=== PATIENT | male | born 1955 | race Two or more races ===

== ENCOUNTER 2021-01-31 11:41 | Day surgery (SDC) | payer BC ==
[~2021-01-31] VITALS: Ht 170.2 cm; Wt 80.0 kg
[~2021-01-31 11:41] MED LIST: HYDROmorphone 2 MG/ML VIAL IVP PRN; IV RINGERS,LACTATED 1000ML 1,000 ML IV SCH; MORPHINE SULFATE 2 MG/ML INJ. IVP PRN; PROCHLORPERAZINE 10 MG/2 ML VIAL. IVP PRN; fentaNYL PF VIAL 100 MCG/2 ML VIAL IVP PRN
[2021-01-31 12:27] VITALS: BP 150/86
[2021-01-31] MEDS ORDERED: GLIM4TAB8 PO (12:27)
[2021-01-31] MEDS ORDERED: PIOG15TA42 PO (12:27)
[2021-01-31] MEDS ORDERED: METF500T16 PO (12:27)
[2021-01-31] MEDS ORDERED: INSULIN LISPRO 100 UNIT/ML 3ML VIAL for OP,RR ONLY. SQ PRN (12:45)
[2021-01-31] MEDS ORDERED: INSULIN LISPRO 100 UNIT/ML 3ML VIAL for OP,RR ONLY. SQ ONE (12:45)
[2021-01-31] MEDS ORDERED: ONDANSETRON PF 4 MG/2 ML VIAL. ONE (13:01)
[2021-01-31] MEDS ORDERED: LIDOCAINE 2% PF 5 ML VIAL. ONE (13:01)
[2021-01-31] MEDS ORDERED: PROPOFOL 10 MG/ML (20ML) VIAL. IV ONE (13:01)
[2021-01-31] MEDS ORDERED: DEXAMETHASONE SOD PHOS 4 MG/ML VIAL ONE (13:01)
[2021-01-31] MEDS ORDERED: fentaNYL PF VIAL 100 MCG/2 ML VIAL ONE (13:02)
[2021-01-31] MEDS ORDERED: NEOMY/BACITR/POLYMYXIN OINT PACKET. TP ONE (15:22)
[2021-01-31] MEDS ORDERED: LIDOCAINE 1%/EPI 1:100,000 20 ML VIAL. ONE (15:23)
[2021-01-31] MEDS ORDERED: PHENYLEPHRINE in 0.9% NACL PF 1 MG/10 ML SYRINGE. IV ONE (16:21)
[2021-01-31] MEDS ORDERED: PHENYLEPHRINE 10 MG/ML VIAL. ONE (16:21)
[2021-01-31] MEDS ORDERED: SEVOFLURANE 61 TO 120 MINUTES. IH ONE (16:44)
[2021-01-31 17:18] VITALS: BP 121/79
[2021-01-31] MEDS ORDERED: CEPH500C PO (17:57)
--- NOTE | 2021-02-04 14:50 | PDOC4 ---
OPERATIVE NOTE Date: Date: Jan 31, 2021 Pre-Op Diagnosis: Malignant skin lesion of left cheek, Mass of right ring finger Post-Op Diagnosis: Same Procedure Performed: 1. Excisional biopsy of left cheek skin lesion with intermediate repair, CPT 20406 x one unit & CPT 43355 x one unit 2. Excision of right ring finger mass CPT 09392 x one unit Surgeon: Rea Escalante MD Anesthesia Type: MAC Blood Loss: 5 mL Specimans Obtained: Skin lesion left cheek and mass of right ring finger Findings: See op note Complications: None Operative Note: Indications This is a patient with a longstanding, nonhealing skin lesion of his left medial cheek which is suspicious for basal cell carcinoma. He presents today for an excisional biopsy of the lesion. He also has a painful subcutaneous mass of the right ring finger which is interfering with work. Therefore he also presents for excision of this mass. Procedure Informed consent was obtained in the perioperative holding area. The benefits, alternatives, and risks including bleeding, infection, incomplete removal of either lesion, scarring, the need for additional procedures, need for revisions were discussed with the patient. He understood the risks and desired to proceed. Patient was taken to the operating room where a timeout was completed verifying the correct patient and correct procedure. Preoperative antibiotics were given. The skin of the left face was carefully prepped with Betadine and the right hand was prepped with ChloraPrep. Each site was draped in a sterile fashion. A sterile tourniquet was placed on the right upper arm. The procedure began on the left face where 5mm circumferential margins were made around the skin lesion. An ellipse was then designed around these margins angled obliquely, running parallel to the nasolabial fold along the natural skin lines. A #15 scalpel was used to incise the skin through the dermis and hsieh bcutaneous tissues down to the muscle layer. The specimen was labeled with sutures and sent for histopathology. Hemostasis was achieved with electrocautery. The skin was undermined widely until a tension free closure could be achieved. The deep dermis was closed with 4-0 Vicryl suture and the skin was closed with running 4-0 Monocryl suture. Next, attention was turned to the right ring finger. The lesion was palpated in the subcutaneous tissue dorsally and ulnarly overlying the proximal phalanx. A subcentimeter horizontal incision was made on the proximal phalanx overlying the mass. Careful dissection proceeded through the subcutaneous tissue using tenotomy scissors. The mass was identified and grasped with forceps. The ulnar neurovascular bundle was gently teased from the mass. The digital nerve was noted to be adherent to the mass. The mass was removed from the wound and sent to the lab for analysis. The site was irrigated with saline. The tourniquet was deflated and total tourniquet time noted. Hemostasis was achieved with electrocautery and the skin was closed with 4-0 nylon interrupted horizontal mattress sutures. 1% lidocaine with 1:100,000 epinephrine was injected at each site. The incisions were covered with bacitracin, xeroform, and gauze. The patient tolerated the procedure well and was taken to the PACU in stable condition. REA ESCALANTE MD Feb 04, 2021 14:50
--- NOTE | 2021-02-05 16:15 | PATHOLOGY ---
[facility] Accession Number: [id number] . 01 Material submitted: . PART A: cheek - LEFT CHEEK BASAL CELL CARCINOMA SHORT STITCH SUPERIOR, LONG STITCH LATERAL. Modifiers: left PART B: ring finger - RIGHT RING FINGER MASS. Modifiers: right . 01 Clinical history: . BASAL CELL CA FACE MASS R EXCISION BASAL CARCINOMA LEFT CHEEK . 02 Diagnosis: A. Skin and subcutaneous tissue, left cheek lesion excision: - Nodular basal cell carcinoma, inked margins of excision free of neoplasm. - Focal acute and chronic folliculitis with foreign body type giant cell reaction. . B. Fibroadipose tissue, right ring finger mass: - Glomus tumor, with organizing thrombosis. See comment. . (JPM:bharti/miriam; 02/04/2021) . . MBR 02/05/2021 0901 Local . 02 Comment: Sections of the right ring finger mass reveal dilated vascular structures showing organizing thrombosis. Within the wall of these dilated vascular structures, there are nests of small uniform epithelioid cells having small amounts of pale eosinophilic cytoplasm and possessing small round uniform nuclei. A panel of immunoperoxidase stains is obtained on B1 and yields the following results: . Smooth muscle actin: Small epithelioid cells positive CD34: Small epithelioid cells negative S100: Small epithelioid cells negative AE1/AE3: Small epithelioid cells negative . The morphologic and immunophenotypic findings are supportive of the diagnosis of glomus tumor. (JPM:miriam; 02/05/2021) . Special stains performed: Immunoperoxidase stains for smooth muscle actin, CD34, S100 and AE1/AE3 on B1. . 02 Electronically signed: . Juancho Zelaya MD, Pathologist NPI- [id number] . 01 Gross description: . A. The specimen is received in formalin, labeled "Alex Kim, short stitch superior, long stitch lateral". No source is listed on the container. The source is verified on the problem specimen form as "left cheek". Received is an oriented ellipse of skin measuring 2.0 x 1.3 x 0.7 cm in greatest dimensions with a short suture placed on the epidermal surface, near one tip, designated as the superior (12:00) margin and a long suture placed on the epidermal surface, near one edge, designated as the lateral (4:00) margin. The surgical margins are inked as follows: 12:00-3:00-yellow, 3:00-6:00-blue, 6:00-12:00-black. The epidermal surface displays a poorly defined, raised, pale white to light pablo and slightly crusted lesion measuring 0.8 x 0.7 cm. The specimen is sectioned into 9 pieces and entirely submitted in cassettes A1-A3, with the 12:00 and 6:00 aspect placed in cassette A3. . B. The specimen is received in formalin, labeled "Alex Kim, right ring finger mass". Received is an irregular segment of purple-nixon to red-brown tissue measuring 1.4 x 0.8 x 0.5 cm in greatest dimensions. The entire specimen is inked. The specimen is trisected and entirely submitted in cassette B1. ([facility]; 02/01/2021) NRI/NRI 02/01/2021 1905 Local . 02 Pathologist provided ICD-10: C44.319, L73.9, D18.00 . 02 CPT . 217402, 316711, W27128, K00290 Specimen Comment: A courtesy copy of this report has been sent to [phone], [phone] Specimen Comment: [id number] Specimen Comment: Report sent to / DR BEE Performed at: 01 [facility] [address], [place] [id number] MD Valentin Field MD Phone: [phone] Performed at: 02 [facility] [address] [place], [place] [id number] MD Juancho Zelaya MD Phone: [phone]
== END 2021-01-31 17:29 | disposition home or self-care (01) ==
LOC: SURG 11:41 → MERGE 13:45 → SURG 17:29
PROVIDERS: ATTEND Plastic Surgery
DX: L73.9 Follicular disorder, unspecified (principal); C44.319 Basal cell carcinoma of skin of other parts of face; D18.00 Hemangioma unspecified site; E11.9 Type 2 diabetes mellitus without complications; Z79.84 Long term (current) use of oral hypoglycemic drugs; Z79.899 Other long term (current) drug therapy; Z98.890 Other specified postprocedural states; Z72.89 Other problems related to lifestyle
CPT/HCPCS: 11421; 11643; 82962; A4209; A4930; A6223; A6258; A6402; J0690; J1100; J1815; J2370; J2405; J2704; J3010; J3490; 88305; 88341; 88342; A4223; A4657